=== PATIENT | male | born 1960 ===

== ENCOUNTER → 2016-05-23 | Outpatient (CLI) | payer BC | LOC: GMAM 10:02 | PROVIDERS: ATTEND Family Medicine | DX: Z12.5 Encounter for screening for malignant neoplasm of prostate (principal) ==

== ENCOUNTER → 2017-02-14 | Outpatient (CLI) | payer BC | END | disposition home or self-care (01) | LOC: GMAM 00:03 | PROVIDERS: ATTEND Family Medicine | DX: M79.609 Pain in unspecified limb (principal) ==

== ENCOUNTER → 2017-03-03 | Outpatient (CLI) | payer BC | LOC: GMAM 10:41 | PROVIDERS: ATTEND Family Medicine | DX: M10.071 Idiopathic gout, right ankle and foot (principal); Z12.5 Encounter for screening for malignant neoplasm of prostate | CPT/HCPCS: 84550; G0103 ==

== ENCOUNTER → 2017-05-01 | Outpatient (CLI) | payer BC | LOC: GMAM 11:14 | PROVIDERS: ATTEND Family Medicine | DX: M10.071 Idiopathic gout, right ankle and foot (principal) ==

== ENCOUNTER → 2017-11-14 | Outpatient (CLI) | payer BC | LOC: GMAM 11:37 | PROVIDERS: ATTEND Family Medicine | DX: M10.071 Idiopathic gout, right ankle and foot (principal) ==

== ENCOUNTER → 2018-05-21 | Outpatient (CLI) | payer BC | LOC: GMAM 11:01 | PROVIDERS: ATTEND Family Medicine | DX: R53.83 Other fatigue (principal); M10.071 Idiopathic gout, right ankle and foot; E55.9 Vitamin D deficiency, unspecified; Z12.5 Encounter for screening for malignant neoplasm of prostate ==

== ENCOUNTER → 2018-10-11 | Outpatient (CLI) | payer BC | LOC: GMAM 10:41 | PROVIDERS: ATTEND Family Medicine | DX: E55.9 Vitamin D deficiency, unspecified (principal); E78.2 Mixed hyperlipidemia; E11.9 Type 2 diabetes mellitus without complications; I10 Essential (primary) hypertension ==

== ENCOUNTER → 2019-06-11 | Outpatient (CLI) | payer BC | LOC: GMAM 10:27 | PROVIDERS: ATTEND Family Medicine | DX: R53.83 Other fatigue (principal); Z12.5 Encounter for screening for malignant neoplasm of prostate; E29.9 Testicular dysfunction, unspecified; M10.071 Idiopathic gout, right ankle and foot; E55.9 Vitamin D deficiency, unspecified; E11.9 Type 2 diabetes mellitus without complications ==

== ENCOUNTER → 2020-01-31 | Outpatient (CLI) | payer BC | LOC: GMAM 10:53 | PROVIDERS: ATTEND Family Medicine | DX: E78.2 Mixed hyperlipidemia (principal); E55.9 Vitamin D deficiency, unspecified; E11.9 Type 2 diabetes mellitus without complications; M10.071 Idiopathic gout, right ankle and foot ==